=== PATIENT | male | born 2000 | race Asian ===

== ENCOUNTER 2018-03-27 10:45 | Emergency (ER) | payer MEDICAID ==
[~2018-03-27] VITALS: Ht 167.6 cm; Wt 80.1 kg
[2018-03-27 11:01] VITALS: BP 131/68
[2018-03-27] MEDS ORDERED: LIDOCAINE 1%-EPI 1:100K, 20ML ONE (11:13)
[2018-03-27] MEDS ORDERED: LIDOCAINE 1%-EPI 1:100K, 20ML SQ ONE (11:30)
== END 2018-03-27 12:05 | disposition home or self-care (01) ==
LOC: ED 11:35
DX: K13.0 Diseases of lips (principal); L02.01 Cutaneous abscess of face
CPT/HCPCS: 10060; 99283